=== PATIENT | male | born 1950 | race Hispanic/Latino ===

== ENCOUNTER 2017-10-11 21:53 | Emergency (ER) | payer BC ==
[2017-10-11 21:58] VITALS: BMI 20.9
[2017-10-11 22:02] VITALS: TEMP 97.7; O2SAT 100
--- NOTE | 2017-10-11 23:28 | ED PDOC ---
Syncope/Near Syncope/Dizziness <Arlette Seaman - Last Filed: 10/12/17 00:49> Chief Complaint (Provider): Syncope History Per: Patient History/Exam Limitations: no limitations Onset/Duration Of Symptoms: Mins (onset just prior to arrival) Current Symptoms Are (Timing): Still Present Additional Complaint(s): 67 y/o male, brought in by [facility], presents to the ED complaining of 2 episodes of syncope, one resulting in lacerations on the chin and left eyebrow, onset of an hour prior to arrival. Patient suffered a 2 syncopal episodes while at work. Denies feeling chest pain, SOB, dizziness, or headache prior to falling. Patient sustained 1 inch laceration to chin, 0.5inch laceration to left brow and a chipped front tooth. Bleeding controlled. Patient AA&Ox3. <Francisca Paez Y - Last Filed: 10/15/17 22:44> Time Seen by Provider: 10/11/17 22:00 Chief Complaint (Nursing): Syncope Past Medical History Vital Signs: Last Vital Signs Temp 97.7 F 10/11/17 21:58 Pulse 79 10/12/17 00:16 Resp 16 10/11/17 21:58 BP 119/90 10/11/17 21:58 Pulse Ox 100 10/12/17 00:21 <Arlette Seaman C - Last Filed: 10/12/17 00:49> Reviewed: Historical Data, Nursing Documentation, Vital Signs Vital Signs: Last Vital Signs Temp 97.7 F 10/11/17 21:58 Pulse 79 10/11/17 21:58 Resp 16 10/11/17 21:58 BP 119/90 10/11/17 21:58 Pulse Ox 100 10/11/17 21:58 - Medical History PMH: No Chronic Diseases - Surgical History Surgical History: No Surg Hx - Family History Family History: States: Unknown Family Hx - Social History Current smoker - smoking cessation education provided: No Ex-Smoker (has not smoked in the last 12 months): No Alcohol: None Drugs: Denies <Francisca Paez Y - Last Filed: 10/15/17 22:44> - Allergies Allergies/Adverse Reactions: Allergies Allergy/AdvReac Type Severity Reaction Status Date / Time No Known Allergies Allergy Verified 10/11/17 21:57 Review of Systems ROS Statement: Except As Marked, All Systems Reviewed And Found Negative Constitutional: Negative for: Fever Cardiovascular: Negative for: Chest Pain Respiratory: Negative for: Shortness of Breath Gastrointestinal: Negative for: Vomiting, Abdominal Pain Musculoskeletal: Positive for: Leg Pain (upon falling, notes bruise) Neurological: Negative for: Headache, Dizziness <Francisca Paez Y - Last Filed: 10/15/17 22:44> Physical Exam - Reviewed Nursing Documentation Reviewed: Yes Vital Signs Reviewed: Yes - Physical Exam Appears: Negative for: Well (patient appears cachetic) Head Exam: Positive for: ATRAUMATIC, NORMAL INSPECTION, NORMOCEPHALIC Skin: Positive for: Normal Color, Warm Eye Exam: Positive for: Normal appearance, EOMI, PERRL Neck: Positive for: Normal, Painless ROM, Supple Cardiovascular/Chest: Positive for: Regular Rate, Rhythm. Negative for: Murmur Respiratory: Positive for: Normal Breath Sounds. Negative for: Respiratory Distress Gastrointestinal/Abdominal: Positive for: Normal Exam, Soft. Negative for: Tenderness Back: Positive for: Normal Inspection Extremity: Positive for: Swelling (hematoma on right leg, but neurovascularly intact), Other (irregular 1in laceration under chin w/ no active bleeding; 0.5 in laceration on left forehead) DTR - Knee (R): 2+ DTR - Knee (L): 2+ Neurologic/Psych: Positive for: Alert, Oriented. Negative for: Motor/Sensory Deficits <Francisca Peaz Y - Last Filed: 10/15/17 22:44> - Laboratory Results Result Diagrams: 10/11/17 23:50 10/11/17 23:50 <Arlette Seaman C - Last Filed: 10/12/17 00:49> - Laboratory Results Result Diagrams: 10/11/17 23:50 10/11/17 23:50 - ECG ECG: Positive for: Interpreted By Me, Viewed By Me ECG Rhythm: Positive for: Sinus Rhythm (normal). Negative for: ST/T Changes Rate: 79 O2 Sat by Pulse Oximetry: 100 <Francisca Paez Y - Last Filed: 10/15/17 22:44> Medical Decision Making Medical Decision Making: Time: --22:41 Impression: --Syncope Plan: --CT Head W/O Contrast --CT Obrits/Facials W/O Contrast --Labs --Troponin I --Lidocaine/Epinephrine 5ml IJ --Tetanus/Reduced 0.5ml IM Reassess --00:00 Patient to be signed out to Dr. Luis Trejo MD pending imaging, labs, and admission. Scribe Attestation: Documented by Brock Estrada acting as a scribe for Lupe Paez MD. <Francisca Paez Y - Last Filed: 10/15/17 22:44> Procedures - Laceration/Wound Repair Face Wound Length (cm): 3.5 Wound's Depth, Shape: superficial, into muscle, irregular Wound Explored: clean Irrigated w/ Saline (ccs): 250 Anesthesia: Lidocaine w/ Epi Volume Anesthetic (ccs): 2 Wound Repaired With: Sutures (7 size 5'0 nonabsorbable interrupted sutures), Steri-strips (applied to left eyebrow laceration), Skin adhesive (applied to 2cm linear left eyebrow laceration) Wound Complexity: Simple Sterile Dressing Applied?: Yes <Arlette Seaman C - Last Filed: 10/12/17 00:49> Disposition <Arlette Seaman C - Last Filed: 10/12/17 00:49> - Patient ED Disposition Is Patient to be Admitted: Transfer of Care Discussed With : Luis Trejo Doctor Will See Patient In The: ED - Disposition Disposition: Transfer of Care Disposition Time: 00:00 Patient Signed Over To: Luis Trejo <Francisca Paez Y - Last Filed: 10/15/17 22:44> - Clinical Impression Clinical Impression: Syncope - Disposition Condition: STABLE Forms: [employer] [facility] (H[place]ian), [facility] ED School/Work Excuse
[2017-10-11] MEDS ORDERED: Lidocaine 2% w Epi 1:100,000 Inj IJ ONE ×2 (23:35→23:48)
[2017-10-12 00:05] LABS: BASO % 0.3 % (0.0-2.0); EOS % 0.3 % (0.0-4.0); HEMOGLOBIN 14.6 g/dL (12.0-18.0); LYMPH # 0.7 K/uL (1.0-4.3); LYMPH % 11.8 % (20.0-40.0); MEAN CELL VOLUME 92.4 fl (80.0-94.0); MEAN CORPUSCULAR HGB CONC 32.5 g/dL (33.0-37.0); MEAN PLATELET VOLUME 8.8 fl (7.2-11.7); MONO # 0.6 K/uL (0.0-0.8); MONO % 9.3 % (0.0-10.0); NEUT # 4.9 K/uL (1.8-7.0); NEUT % 78.3 % (50.0-75.0); RBC 4.85 Mil/uL (4.40-5.90); RED CELL DISTRIBUTION WIDTH 13.9 % (11.5-14.5); WHITE BLOOD COUNT 6.3 K/uL (4.8-10.8)
[2017-10-12 00:14] LABS: ALB/GLOB RATIO 1.3 (1.0-2.1); ALBUMIN 4.7 g/dL (3.5-5.0); ALT/SGPT 72 U/L (21-72); AST/SGOT 60 U/L (17-59); BLOOD UREA NITROGEN 20 mg/dl (9-20); GFR AFRICAN-AMERICAN > 60; GFR NON-AFRICAN AMERICAN > 60
--- NOTE | 2017-10-12 00:21 | ED PDOC ---
- Laboratory Results Result Diagrams: 10/11/17 23:50 10/11/17 23:50 - ECG O2 Sat by Pulse Oximetry: 100 Medical Decision Making Medical Decision Makin:00 Patient signed out to the provider by Dr. Francisca Paez MD pending imaging, labs, and admission. Reassess --23:44 FINDINGS:CT Head Without Intravenous Contrast Brain: There is minimal patchy low attenuation of deep white matter. Increased CSF around the temporal lobe tips, right greater than left suggesting a subarachnoid cyst on the right measuring approximately 2.0 x 5.2 by 2.4 cm. There may be a small subarachnoid cyst along the anteromedial aspect of the right temporal lobe as well. Upper normal sulci. No hemorrhage. Ventricles: There is mild prominence of the central ventricular system. Bones/joints: Unremarkable. No acute fracture. Soft tissues: Unremarkable. Sinuses: Minimal fluid in the sphenoid sinus. Mastoid air cells: Unremarkable as visualized. No mastoid effusion. IMPRESSION: 1. Minimal chronic ischemic white matter change and minimal central atrophy. 2. 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 3. Minimal sphenoid sinus disease. 4. Otherwise negative noncontrast head CT. --11:53 FINDINGS:CT Maxillofacial Without Intravenous Contrast Bones/joints: Degenerative changes of the upper cervical spine. No acute fracture. Soft tissues: Small laceration of the chin. Orbits: Unremarkable. Sinuses: Unremarkable. No air-fluid levels. Brain: Probable subarachnoid cysts in the middle cranial fossae, right greater than left. IMPRESSION: 1. Small laceration of the chin. 2. Otherwise negative CT facial bones. No fractures. --02:08 Labs reviewed and revealed no clinically significant abnormalities Patient counseled to stay in the hospital for further evaluation for the patient 's syncope, however he declined. Patient will be discharged home against medical advice. Scribe Attestation: Documented by Brock Estrada acting as a scribe for Luis Trejo MD. Disposition - Clinical Impression Clinical Impression: Syncope - POA Present On Arrival: None - Disposition Disposition: AGAINST MEDICAL ADVICE Disposition Time: 02:08 Condition: STABLE Forms: [facility] (Upper Sorbian) Against Medical Advice - AMA Patient Left Against Medical Advice: The patient declines admission to the hospital and wishes to leave the Emergency Department. This action is against my medical advice. This decision was made with informed refusal. The patient was told that admission to the hospital is necessary. Explanation of the reasons why were discussed. The risks of leaving were explained to the patient and include, but are not limited to, worsening of known or currently unknown conditions, permanent disability and from undiagnosed or untreated conditions. The patient has the capacity to make this informed decision and understands my explanation of the current medical problem and risks of leaving. The patient voluntarily accepts these risks and signed an AMA form documenting our conversation. The patient was given the opportunity to ask questions and reconsider. The patient was encouraged to return to the Emergency Department at any time for further care.
[2017-10-12 02:34] VITALS: BP 154/97; RESP 18
--- NOTE | 2017-10-12 07:56 | CT ---
PROCEDURE: CT HEAD WITHOUT CONTRAST. HISTORY: headache COMPARISON: None available. TECHNIQUE: Axial computed tomography images were obtained through the head/brain without intravenous contrast. Radiation dose: Total exam DLP = 890.42 mGy-cm. This CT exam was performed using one or more of the following dose reduction techniques: Automated exposure control, adjustment of the mA and/or kV according to patient size, and/or use of iterative reconstruction technique. FINDINGS: HEMORRHAGE: No intracranial hemorrhage. BRAIN: No mass effect or edema. Cortical atrophy, periventricular small vessel disease bilateral arachnoid cysts left temporal fossa region right larger than left VENTRICLES: Unremarkable. No hydrocephalus. CALVARIUM: Unremarkable. PARANASAL SINUSES: Unremarkable as visualized. No significant inflammatory changes. MASTOID AIR CELLS: Unremarkable as visualized. No inflammatory changes. OTHER FINDINGS: None. IMPRESSION: No acute intracranial abnormalities. No significant findings to account for the clinical presentation. Concordant results (preliminary interpretation) provided by [employer]. Procedure Completed: 23:02 Preliminary ([facility]) Report: Dictated and Authenticated: 23:44 Final Interpretation: 07:55 .
--- NOTE | 2017-10-12 09:40 | RAD ---
PROCEDURE: Radiographs of the right tibia and fibula. HISTORY: r leg pain COMPARISON: None available. TECHNIQUE: Frontal and lateral views obtained. FINDINGS: Marked soft tissue swelling. BONES: No acute displaced fracture identified. Degenerative changes including calcaneal enthesophyte. Tricompartmental narrowing most severe at the medial compartment. JOINT SPACES: No dislocation. OTHER FINDINGS: Marked soft tissue swelling about the ankle. No evidence of radiopaque foreign body. Vascular calcifications. IMPRESSION: Degenerative changes. Marked soft tissue swelling about the ankle. No acute displaced fracture or dislocation identified. Dedicated ankle radiographs may be considered if indicated. Correlate clinically.
--- NOTE | 2017-10-12 10:04 | CT ---
PROCEDURE: CT ORBITS WITHOUT CONTRAST. HISTORY: facial injury COMPARISON: None available. TECHNIQUE: Axial CT images of the orbits were obtained. Coronal and sagittal reformats were generated. Radiation dose: Total exam DLP = 898.42 mGy-cm. This CT exam was performed using one or more of the following dose reduction techniques: Automated exposure control, adjustment of the mA and/or kV according to patient size, and/or use of iterative reconstruction technique. FINDINGS: RIGHT ORBIT: RIGHT BONY ORBIT: Normal. RIGHT INTRAORBITAL STRUCTURES: Globe: Normal. Extraocular muscles: Normal. Post septal space: Normal. Optic Nerve: Normal. Lacrimal Apparatus: Normal. RIGHT PRESEPTAL SOFT TISSUES: Normal. LEFT ORBIT: LEFT BONY ORBIT: Normal. LEFT INTRAORBITAL STRUCTURES: Globe: Normal. Extraocular muscles: Normal. Post septal space: Normal Optic Nerve: Normal. . Lacrimal Apparatus: Normal. LEFT PRESEPTAL SOFT TISSUES: Normal. OTHER: None. IMPRESSION: Unremarkable non contrast enhanced CT of the orbits.
--- NOTE | 2017-10-12 11:05 | CARD ---
APPROVED REPORT EKG Measurement Heart [id number] [id number] <Conclusion> Normal sinus rhythm Septal infarct, age undetermined Abnormal ECG
[2017-10-15 22:44] VITALS: PULSE 79
== END 2017-10-12 02:25 | disposition left against medical advice (07) ==
LOC: H.ER 21:53
DX: S01.112A Laceration without foreign body of left eyelid and periocular area, initial encounter (principal); S01.81XA Laceration without foreign body of other part of head, initial encounter; W19.XXXA Unspecified fall, initial encounter; Z87.891 Personal history of nicotine dependence; Z23 Encounter for immunization

== ENCOUNTER 2017-10-17 15:46 | Emergency (ER) | payer BC ==
[2017-10-17 15:46] VITALS: BMI 20.9
[2017-10-17 16:22] VITALS: BP 146/77; PULSE 74; RESP 16; TEMP 98.5; O2SAT 100
--- NOTE | 2017-10-17 16:50 | ED PDOC ---
HPI: Wound Care - HPI Time Seen by Provider: 10/17/17 16:04 Chief Complaint (Nursing): Suture/Staple Removal Chief Complaint (Provider): Suture removal History Per: Patient Exam Limitations: no limitations Onset/Duration Of Symptoms: Days (x1 week) Current Symptoms Are (Timing): Better Additional Complaint(s): Sher Fuller is a 67 year old male, with no past medical history, who presents to the emergency department for suture removal on face placed x1 week ago. Patient denies any pain, discharge, fever or chills. No further medical complaints. PMD: Eric Lanza Past Medical History Reviewed: Historical Data, Nursing Documentation, Vital Signs Vital Signs: Last Vital Signs Temp 98.5 F 10/17/17 16:20 Pulse 74 10/17/17 16:20 Resp 16 10/17/17 16:20 BP 146/77 10/17/17 16:20 Pulse Ox 100 10/17/17 16:20 - Medical History PMH: No Chronic Diseases - Surgical History Surgical History: No Surg Hx - Family History Family History: States: Unknown Family Hx - Allergies Allergies/Adverse Reactions: Allergies Allergy/AdvReac Type Severity Reaction Status Date / Time No Known Allergies Allergy Verified 10/17/17 16:20 Review of Systems ROS Statement: Except As Marked, All Systems Reviewed And Found Negative Constitutional: Negative for: Fever, Chills Skin: Positive for: Other (sutures on face) Physical Exam - Reviewed Nursing Documentation Reviewed: Yes Vital Signs Reviewed: Yes - Physical Exam Appears: Positive for: Well, Non-toxic, No Acute Distress Head Exam: Positive for: ATRAUMATIC (#[address] for submental repair laceration), NORMAL INSPECTION, NORMOCEPHALIC Skin: Positive for: Normal Color, Warm, Dry Eye Exam: Positive for: Normal appearance Neck: Positive for: Normal, Painless ROM, Supple Extremity: Positive for: Normal ROM. Negative for: Deformity, Swelling Neurologic/Psych: Positive for: Alert, Oriented - ECG O2 Sat by Pulse Oximetry: 100 (RA) Pulse Ox Interpretation: Normal Medical Decision Making Medical Decision Making: Initial Impression: suture removal Initial Plan: 16:40 Performed by the emergency provider Location: submental Distal CMS: Normal. No deficits. Neurovascularly intact. Procedure: In total, 7 sutures were removed. Post-Procedure: Good closure and hemostasis. The patient tolerated the procedure well and there were no complications. CSM remains intact. 16:48 --Upon provider reevaluation patient is feeling better, is medically stable, and requires no further treatment in the ED at this time. Patient will be discharged home. Counseling was provided and all questions were answered regarding diagnosis. There is agreement to discharge plan. Return if symptoms persist or worsen. ~ Scribe Attestation: Documented by Alexis Lee, acting as a scribe for Casandra Ross PA-C. Provider Scribe Attestation: All medical record entries made by the Scribe were at my direction and personally dictated by me. I have reviewed the chart and agree that the record accurately reflects my personal performance of the history, physical exam, medical decision making, and the department course for this patient. I have also personally directed, reviewed, and agree with the discharge instructions and disposition. Disposition - Clinical Impression Clinical Impression: Removal of suture - Patient ED Disposition Is Patient to be Admitted: No - Disposition Disposition: Routine/Home Disposition Time: 16:48 Condition: STABLE Instructions: Stitches Removal (ED) Forms: [employer] (Spanish) - POA Present On Arrival: None
== END 2017-10-17 16:50 | disposition home or self-care (01) ==
LOC: H.ER 15:46
DX: Z48.02 Encounter for removal of sutures (principal)